=== PATIENT | female | born 1995 | race Caucasian/White ===

== ENCOUNTER 2016-08-28 15:36 | Emergency (ER) | payer SELFPAY ==
[2016-08-28 16:37] VITALS: TEMP 98.3; BMI 23.3
[2016-08-28 16:47] LABS: AMORPHOUS 1+; RBC/URINE 0-2 (0-5)
--- NOTE | 2016-08-28 16:51 | EDPRACDOC ---
- General Information Chief Complaint: Possible Stated Complaint: WANTS PREG TEST Time Seen by Provider: 08/28/16 16:42 Information Source: Patient Mode of Arrival: Car Home Medications: Home Medications Vits W-Ca,Fe,FA(<1Mg) [ Vitamins] 1 each PO DAILY #100 tablet 08/28/16 Allergies/Adverse Reactions: Allergies Allergy/AdvReac Type Severity Reaction Status Date / Time apple [Apple] Allergy Severe Hives* Verified 08/28/16 16:44 tramadol Allergy Severe Hives* Verified 08/28/16 16:44 - History of Present Illness Onset: unknown HPI: PT STATES LNMP 08/02/16 STATES SHE HAS TAKEN MULTIPLE HOME PREG TEST AND ALL HAVE BEEN INCONCLUSIVE. PT DENIES ADB PAIN VAGINAL BLEEDING OR DISCHARGE AT THIS TIME. STATES SHE IS SIMPLY HERE TO SEE IF SHE IS . Last Menstrual Period: 08/02/16 Control Method: Reports: None Symptoms: Reports: Missed Period Blood Type: Unknown Associated Signs & Symptoms: Reports: None Bleeding Description: Reports: None Pain Severity: None Vomiting Severity: None Nausea Severity: None ED Past Medical History - History Reviewed Yes Nurses notes reviewed and agree except as marked Travel Outside of [place] in the Last 3 Months?: No - Patient Medical History GI/ History: Reports: Kidney Stones (LITHOTRIPSY ~ 18 MONTHS AGO) Psychological History: Denies: Depression Surgical History: Reports: Tonsillectomy/Adnoidectomy - Social Medical History Smoking Status: Heavy tobacco smoker (5 or more cigarettes/day or daily pipe/ cigar) ETOH: None Substance Abuse: None Lives With: Other Lives In: Home EDM Review of Systems - Review of Systems ROS Negative Except as Marked: Yes All systems reviewed and were negative except as marked Constitutional: No Symptoms Reported. negative: Fever, Chills, Weakness, Fatigue, Loss of Appetite Eyes: No Symptoms Reported. negative: Redness, Blurred Vision, Double Vision, Discharge, Pain, Light Sensitive, Photophobia Ears: No Symptoms Reported. negative: Pain, Hearing Loss, Drainage, Ear Pulling Throat: No Symptoms Reported. negative: Pain, Swelling Nose: No Symptoms Reported. negative: Congestion, Bleeding, Discharge, Injection, Swelling, Deformity, Ecchymosis, Tender, Abrasion, Laceration Mouth: No Symptoms Reported. negative: Pain, Drooling Respiratory: No Symptoms Reported. negative: Cough, Brassy Cough, Barky Cough, Shortness of Breath, Wheezing, Hemoptysis Cardiovascular: No Symptoms Reported. negative: Chest Pain, Palpitations, Syncope, Edema, Orthopnea, PND, Skin Mottling, Cyanosis Gastrointestinal: No Symptoms Reported. negative: Pain, Constipation, Nausea, Vomiting, Diarrhea, Melena, Formula Intolerance Genitourinary: No Symptoms Reported. negative: Dysuria, Hematuria, Frequency, Discharge, Bleeding, Testicular Pain, Neurological: No Symptoms Reported. negative: Headache, Dizziness, Seizure, Numbness, Weakness, Speech Difficulty, Gait Difficulty Musculoskeletal: No Symptoms Reported. negative: Neck, Chestwall, Ribs, Back, Shoulder, Arm, Elbow, Forearm, Wrist, Hand, Pelvis, Hip, Femur, Knee, Leg, Ankle , Foot Integumentary: No Symptoms Reported. negative: Itching, Rash, Bruising, Wound Allergic/Immunologic: No Symptoms Reported. negative: Hives, Itching Hematologic: No Symptoms Reported. negative: Lymphadenopathy, Easy Bruising, Easy Bleeding Endocrine: No Symptoms Reported. negative: Weight Gain, Weight Loss Psychiatric: No Symptoms Reported. negative: Anxiety, Depression, Hallucinations, Insomnia, Suicidal - Physical Exam Constitutional: Alert (Awake), No apparent distress Oriented to: Time, Person, Place Last recorded Vital Signs: Last Vital Signs Temp 98.3 F 08/28/16 16:36 Pulse 68 08/28/16 16:36 Resp 18 08/28/16 16:36 BP 107/58 L 08/28/16 16:36 Pulse Ox 97 08/28/16 16:36 Oxygen Pulse Oxygen Saturation 97 O2 Device Oxygen Flow Rate Fraction of Inspired Oxygen ( FIO2) - HEENT Head: Normal ( normocephalic) Eye Exam: Normal (PERRL, EOMI, Sclera white) Oropharynx: Normal (Pharynx:Moist without exudate,Gums-no swelling) Tympanic Membrane: Normal ENT EAC: Normal TMJ: Normal Nose: No Symptoms Reported (septum midline) Neck: Normal (FROM, trachea at midline) - Respiratory/Cardiovascular Respiratory: Normal - CTA (BBS clear to auscultation without adventitious sounds ) Cardiovascular: Normal (RRR without murmur, gallop or rub) - GI Auscultation: Normal (NABS) Palpation: Normal (Soft,No rebound or guarding, non distended) Tenderness: Non tender Leal's Sign: Negative - Musculoskeletal Back: Normal (Non-Tender) Extremities: Normal (Normal tone, Pulses 2+ No cyanosis or edema, FROM) - Integumentary Skin: Normal, Warm, Dry Lymphatics: Normal (no adenopathy) - Neurologic Memory Impaired: Normal Motor Function: Normal (Normal tone, Pulses 2+ No cyanosis or edema, FROM) Cranial Nerve: Normal (CN II-X11 intact sensation, strength 5/5) Cerebellar: Normal Mood Description: Normal Perception: Normal - Differential Diagnosis Intrauterine , Other () - Results Urine Test Weakly pos (NEGATIVE) H 08/28/16 16:24 Lab Results 08/28/16 16:24 Urine Test Weakly pos H - Departure Disposition: Home Condition: Stable Final Diagnosis: Early stage of Instructions: Vitamins (By mouth), (ED) Education/Counseling Given To: Patient Education/Counseling Given Regarding: Diagnosis, Treatment, Prognosis, Follow Up Referrals: None,No Provider [Primary Care Provider] - One Week Prescriptions: Vits W-Ca,Fe,FA(<1Mg) [ Vitamins] 1 each PO DAILY #100 tablet Additional Instructions: FOLLOW UP WITH [facility] FOR REPEAT TEST IN 1 WEEK OR RETURN FOR WORSE OR DIFFERENT SYMPTOMS.
[2016-08-28 16:55] LABS: LEUKOCYTES/URINE 1+ (NEGATIVE); NITRITE/URINE NEG (NEGATIVE); URINE OCCULT BLOOD NEG (NEG/TRACE)
[2016-08-28 17:08] VITALS: BP 111/68; PULSE 86
== END 2016-08-28 17:07 | disposition home or self-care (01) ==
LOC: EDMC 15:36
DX: Z34.90 Encounter for supervision of normal pregnancy, unspecified, unspecified trimester (principal)
CPT/HCPCS: 81001; 81025; 87086; 99282

== ENCOUNTER 2016-09-01 08:56 | Emergency (ER) | payer SELFPAY ==
[2016-09-01 09:02] VITALS: TEMP 98.5; BMI 21.2
[2016-09-01] MEDS ORDERED: NS 1,000 ML IV ONE (09:42)
[2016-09-01 10:06] LABS: AUTOMATED BASOPHIL 0.6 % (0-2); AUTOMATED EOSINOPHIL 2.7 % (0-5); AUTOMATED LYMPH 26.2 % (17-44); AUTOMATED MONOCYTE 5.7 % (3-10); AUTOMATED NEUTROPHIL 64.8 % (45-76); MPV 7.8 fL (7.4-10.4)
[2016-09-01] MEDS ORDERED: ACETAMINOPHEN 325 MG/TAB TABLET PO ONE (10:10)
[2016-09-01 10:18] LABS: BLOOD UREA NITROGEN 9 MG/DL (7-17); CALCIUM 9.4 MG/DL (8.4-10.2); CALCULATED OSMOLALITY 270 MOs/Kg (270-290); CHLORIDE 105 mEq/L (98-107); GLUCOSE 91 MG/DL (70-99); SODIUM LEVEL 141 mEq/L (137-146); TOTAL PROTEIN 7.4 G/DL (6.3-8.2)
[2016-09-01 10:20] LABS: LEUKOCYTES/URINE NEG (NEGATIVE); NITRITE/URINE NEG (NEGATIVE); URINE OCCULT BLOOD NEG (NEG/TRACE)
[2016-09-01 10:29] LABS: AMORPHOUS 1+
[2016-09-01 10:32] LABS: QUANTITATIVE SERUM HCG 5.8 mIU/mL (<5)
--- NOTE | 2016-09-01 10:56 | EDPRACDOC ---
- General Information Chief Complaint: Vaginal Bleeding Stated Complaint: VAGINAL BLEED (PREG) Time Seen by Provider: 09/01/16 09:16 Information Source: Patient Mode of Arrival: Car Home Medications: Home Medications No Home Medications 09/01/16 Allergies/Adverse Reactions: Allergies Allergy/AdvReac Type Severity Reaction Status Date / Time apple [Apple] Allergy Severe Hives* Verified 09/01/16 09:02 tramadol Allergy Severe Hives* Verified 09/01/16 09:02 - History of Present Illness Onset: YEST HPI: PT PRESENTS WITH VAGINAL BLEEDING AND CRAMPING. STATES THIS BEGAN YESTERDAY WITH SPOTTING AND THEN A GUSH OF BLOOD THIS AM. STATES SHE THINKS SHE IS APPROX 2-3 WEEKS . MILD ABDOMINAL CRAMPING NOTED. NO NAUSEA OR VOMITING NOTED. NO FEVER OR CHILLS NOTED. Description: Reports: Spontaneous Location: Reports: Internal Vagina Relevant History: Reports: Sexually Active : 1 Para: 1 Control Method: Reports: None Blood Type: A+ Pain Severity: Mild Vaginal Bleeding Description: Reports: Bright Red Associated Signs & Symptoms: Reports: Vaginal Bleeding ED Past Medical History - History Reviewed Yes Nurses notes reviewed and agree except as marked - Patient Medical History GI/ History: Reports: Kidney Stones (LITHOTRIPSY ~ 18 MONTHS AGO) Psychological History: Reports: Depression, Anxiety, Bipolar Disorder Surgical History: Reports: Tonsillectomy/Adnoidectomy. Denies: Hysterectomy - Social Medical History Smoking Status: Light tobacco smoker (less than 5/day) EDM Review of Systems - Review of Systems ROS Negative Except as Marked: Yes All systems reviewed and were negative except as marked - Physical Exam Constitutional: Alert Oriented to: Time, Person, Place Last recorded Vital Signs: Last Vital Signs Temp 98.5 F 09/01/16 08:58 Pulse 95 09/01/16 08:58 Resp 18 09/01/16 08:58 BP 111/53 L 09/01/16 08:58 Pulse Ox 97 09/01/16 08:58 Oxygen Pulse Oxygen Saturation 97 O2 Device Oxygen Flow Rate Fraction of Inspired Oxygen ( FIO2) - HEENT Head: Normal ( normocephalic) Eye Exam: Normal (PERRL, EOMI, Sclera white) Oropharynx: Normal (Pharynx:Moist without exudate,Gums-no swelling) Tympanic Membrane: Normal Nose: No Symptoms Reported (septum midline) Neck: Normal (FROM, trachea at midline) - Respiratory/Cardiovascular Respiratory: Normal - CTA (BBS clear to auscultation without adventitious sounds ) Cardiovascular: Normal (RRR without murmur, gallop or rub) - GI Auscultation: Normal (NABS) Palpation: Normal (Soft,No rebound or guarding, non distended) Tenderness: Mild, Suprapubic Leal's Sign: Negative Rectal Exam: Deferred - Bladder: Normal External: Normal Vagina: Blood Cervix: Blood. negative: Open Uterus: Normal size Adnexa: Bilateral: Normal - Musculoskeletal Back: Normal (Non-Tender) Extremities: Normal (Normal tone, Pulses 2+ No cyanosis or edema, FROM) - Integumentary Skin: Normal, Warm, Dry Lymphatics: Normal (no adenopathy) - Neurologic Memory Impaired: Normal Motor Function: Normal (Normal tone, Pulses 2+ No cyanosis or edema, FROM) Cranial Nerve: Normal (CN II-X11 intact sensation, strength 5/5) Cerebellar: Normal Mood Description: Normal Perception: Normal ED Vaginal Exam External: Normal Vaginal Exam: Normal Vaginal Lesions: None Vaginal Discharge: None Cervix: Blood. negative: Open Uterus: Normal size Adnexa: Normal - Differential Diagnosis Menorrhagia - Results 09/01/16 09:15 09/01/16 09:15 WBC 8.8 xk/uL (3.8-10.8) 09/01/16 09:15 RBC 4.05 xM/uL (4.20-5.40) L 09/01/16 09:15 Hgb 13.2 g/dL (12.0-16.0) 09/01/16 09:15 Hct 38.5 % (36-47) 09/01/16 09:15 MCV 95 fL (81-99) 09/01/16 09:15 MCH 32.4 pg (27-32) H 09/01/16 09:15 MCHC 34.1 g/dl (33-36) 09/01/16 09:15 RDW 12.1 % (11.5-14.5) 09/01/16 09:15 Plt Count 256 xk/uL (130-400) 09/01/16 09:15 MPV 7.8 fL (7.4-10.4) 09/01/16 09:15 Neut % (Auto) 64.8 % (45-76) 09/01/16 09:15 Lymph % (Auto) 26.2 % (17-44) 09/01/16 09:15 [place] % (Auto) 5.7 % (3-10) 09/01/16 09:15 Eos % (Auto) 2.7 % (0-5) 09/01/16 09:15 Baso % (Auto) 0.6 % (0-2) 09/01/16 09:15 Absolute Neuts (auto) 5.63 xk/uL (1.7-8.2) 09/01/16 09:15 Absolute Lymphs (auto) 2.29 xk/uL (0.65-4.75) 09/01/16 09:15 Sodium 141 mEq/L (137-146) 09/01/16 09:15 Potassium 3.9 mEq/L (3.5-5.1) 09/01/16 09:15 Chloride 105 mEq/L (98-107) 09/01/16 09:15 Carbon Dioxide 26 mMOL/L (22-33) 09/01/16 09:15 Anion Gap 14 mEq/L (8-16) 09/01/16 09:15 BUN 9 MG/DL (7-17) 09/01/16 09:15 Creatinine 0.70 MG/DL (0.52-1.04) 09/01/16 09:15 Estimated GFR (MDRD) > 60 mL/min (>=60) 09/01/16 09:15 Glucose 91 MG/DL (70-99) 09/01/16 09:15 Calculated Osmolality 270 MOs/Kg (270-290) 09/01/16 09:15 Calcium 9.4 MG/DL (8.4-10.2) 09/01/16 09:15 Total Bilirubin 0.9 MG/DL (0.2-1.3) 09/01/16 09:15 AST 18 IU/L (14-36) 09/01/16 09:15 ALT 31 IU/L (9-52) 09/01/16 09:15 Alkaline Phosphatase 51 IU/L (38-126) 09/01/16 09:15 Total Protein 7.4 G/DL (6.3-8.2) 09/01/16 09:15 Albumin 4.6 G/DL (3.5-5.0) 09/01/16 09:15 Beta HCG, Quant 5.8 mIU/mL (<5) 09/01/16 09:15 Urine Color Yellow 09/01/16 09:57 Urine Clarity Sl cldy 09/01/16 09:57 Urine pH 8.0 (5.0-8.0) 09/01/16 09:57 Ur Specific [place] 1.005 (1.003-1.035) 09/01/16 09:57 Urine Protein Neg (NEG/TRACE) 09/01/16 09:57 Urine Glucose (UA) Neg (NEGATIVE) 09/01/16 09:57 Urine Ketones Neg (NEGATIVE) 09/01/16 09:57 Urine Occult Blood Neg (NEG/TRACE) 09/01/16 09:57 Urine Nitrite Neg (NEGATIVE) 09/01/16 09:57 Urine Bilirubin Neg (NEGATIVE) 09/01/16 09:57 Urine Urobilinogen <2.0 MG/DL (0-1) 09/01/16 09:57 Ur Leukocyte Esterase Neg (NEGATIVE) 09/01/16 09:57 Urine WBC 5-10 (0-5) H 09/01/16 09:57 Ur Epithelial Cells 1+ 09/01/16 09:57 Amorphous Sediment 1+ 09/01/16 09:57 Urine Bacteria 3+ (NEG/FEW) H 09/01/16 09:57 Urine Mucus Occ (NEG/OCC) 09/01/16 09:57 Urine Test Neg (NEGATIVE) 09/01/16 09:57 Blood Type A POSITIVE 09/01/16 09:15 Microbiology 09/01/16 09:58 LAKESHIA Preparation - Final Vaginal 09/01/16 09:58 Trichomonas Wet Mount - Final Vaginal Lab Results 09/01/16 09/01/16 09/01/16 09:57 09:57 09:15 WBC RBC Hgb Hct MCV MCH MCHC RDW Plt Count MPV Neut % (Auto) Lymph % (Auto) [place] % (Auto) Eos % (Auto) Baso % (Auto) Absolute Neuts (auto) Absolute Lymphs (auto) Sodium 141 Potassium 3.9 Chloride 105 Carbon Dioxide 26 Anion Gap 14 BUN 9 Creatinine 0.70 Estimated GFR (MDRD) > 60 Glucose 91 Calculated Osmolality 270 Calcium 9.4 Total Bilirubin 0.9 AST 18 ALT 31 Alkaline Phosphatase 51 Total Protein 7.4 Albumin 4.6 Beta HCG, Quant 5.8 Urine Color Yellow Urine Clarity Sl cldy Urine pH 8.0 Ur Specific [place] 1.005 Urine Protein Neg Urine Glucose (UA) Neg Urine Ketones Neg Urine Occult Blood Neg Urine Nitrite Neg Urine Bilirubin Neg Urine Urobilinogen <2.0 Ur Leukocyte Esterase Neg Urine WBC 5-10 H Ur Epithelial Cells 1+ Amorphous Sediment 1+ Urine Bacteria 3+ H Urine Mucus Occ Urine Test Neg Blood Type 09/01/16 09/01/16 09:15 09:15 WBC 8.8 RBC 4.05 L Hgb 13.2 Hct 38.5 MCV 95 MCH 32.4 H MCHC 34.1 RDW 12.1 Plt Count 256 MPV 7.8 Neut % (Auto) 64.8 Lymph % (Auto) 26.2 [place] % (Auto) 5.7 Eos % (Auto) 2.7 Baso % (Auto) 0.6 Absolute Neuts (auto) 5.63 Absolute Lymphs (auto) 2.29 Sodium Potassium Chloride Carbon Dioxide Anion Gap BUN Creatinine Estimated GFR (MDRD) Glucose Calculated Osmolality Calcium Total Bilirubin AST ALT Alkaline Phosphatase Total Protein Albumin Beta HCG, Quant Urine Color Urine Clarity Urine pH Ur Specific [place] Urine Protein Urine Glucose (UA) Urine Ketones Urine Occult Blood Urine Nitrite Urine Bilirubin Urine Urobilinogen Ur Leukocyte Esterase Urine WBC Ur Epithelial Cells Amorphous Sediment Urine Bacteria Urine Mucus Urine Test Blood Type A POSITIVE Decision Time to Discharge: 10:58 - Departure Disposition: Home Condition: Stable Final Diagnosis: Menorrhagia Qualifiers: Menorrahagia type: with regular cycle Qualified Code(s): N92.0 - Excessive and frequent menstruation with regular cycle Instructions: Menstruation (ED), Menorrhagia (ED) Education/Counseling Given To: Patient Education/Counseling Given Regarding: Diagnosis, Treatment, Prognosis, Follow Up Referrals: Yadi Alejandro DO [Staff Physician] - One Week Additional Instructions: MOTRIN/TYLENOL FOR PAIN. INCREASE FLUID INTAKE. FOLLOW UP WITH PCP OR [facility]DRA[facility] SPECIALIST NEXT WEEK. RETURN TO THE ED FOR WORSENING SYMPTOMS OR CONCERNS
[2016-09-01 11:20] VITALS: BP 112/59; PULSE 67
[2016-09-03 21:36] LABS: CHLAMY BY NUCLEIC ACID AMP Negative (Negative)
[2016-09-04 09:25] LABS: GC BY NUCLEIC ACID AMP Negative (Negative)
== END 2016-09-01 11:16 | disposition home or self-care (01) ==
LOC: ED 08:56
DX: N92.0 Excessive and frequent menstruation with regular cycle (principal)
CPT/HCPCS: 36415; 80053; 81001; 81025; 84702; 85025; 86900; 86901; 87210; 87220; 87491; 87591; 96360; 99283; J3490